=== PATIENT | male | born 1935 | race Caucasian/White ===

== ENCOUNTER 2024-08-30 13:12 | Emergency (ER) | payer MEDICARE, SELFPAY ==
--- NOTE | 2024-08-30 13:27 | XR_ITS ---
Examination: CT brain head without contrast. 2-D sagittal coronal reconstructions Date and time of exam:August 30, 2024 1441 hrs. Indications: Patient fell today with injury to the head, upper head pain scalp pain CTDI: vol (mGy):51.1 DLP: (mGycm):1117 Technique: Multiple CT axial sections of the brain have been obtained, 5 mm slice thickness. Contrast has not been administered. 2-D sagittal, coronal reconstructions have been obtained Low dose protocols were performed. One or more of the following dose reduction techniques were used; automated exposure control, adjustment of the mA and/or KV according to patient size, use of iterative reconstruction technique. Findings: No significant ventricular enlargement. Intra-axial or extra-axial hemorrhage density is not seen. No mass effect or midline shift Basal cisterns are not remarkable. Fourth ventricle is midline. Cranial vault intact. Impression: Negative for acute hemorrhage, mass effect or midline shift
[2024-08-30 13:28] VITALS: BP 161/70; PULSE 81; RESP 18; TEMP 36.6; O2SAT 94; BMI 22.3
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
[2024-08-30] MEDS: DIPHTH,PERTUSS(ACELL),TET VAC 0.5 ML VIAL IMi (16:02)
[2024-08-30] MEDS: LIDOCAINE HCL 1% 20 ML VIAL INFL (16:02)
[2024-08-30 16:22] VITALS: BP 152/76; PULSE 77; RESP 18; TEMP 37; O2SAT 94
== END 2024-08-30 16:31 | disposition home or self-care (01) ==
LOC: SERX 16:24
PROVIDERS: Emergency Provider Emergency Medicine; PCP Family Medicine
DX: S01.01XA Laceration without foreign body of scalp, initial encounter (principal); V00.141A Fall from scooter (nonmotorized), initial encounter; Z23 Encounter for immunization
CPT/HCPCS: 12002; 70450; 90471; 90715; 99284; J3490

== ENCOUNTER 2024-10-16 18:15 | Emergency (ER) | payer MEDICARE, SELFPAY ==
[2024-10-16 18:16] VITALS: BMI 23.7
[2024-10-16 18:38] VITALS: BP 161/77; PULSE 60; RESP 18; TEMP 36.4; O2SAT 95
--- NOTE | 2024-10-16 19:13 | XR_ITS ---
Examination: Foot, right, 3 views Technique: AP, oblique, lateral views foot, 3 views Date and time of exam: October 16, 2024 1947 hrs. Indications: Redness swelling and pain involving the first digit beginning 2 weeks ago. Findings: Moderate osteopenia Mild narrowing first metatarsophalangeal joint No acute fracture No alex cortical bone destruction Impression: No alex cortical bone destruction As clinically warranted, MRI foot without contrast follow-up would best assess for early osteomyelitis
--- NOTE | 2024-10-16 19:13 | PD.EDRME ---
Rapid Medical Screening Exam RME Arrival date/time: 10/16/24 18:15 89 year old male present to ED for c/o of foot pain for 2 days I have greeted and performed a focused initial assessment of this patient. A comprehensive ED assessment and evaluation of the patient, analysis of all test results, and completion of the medical decision making process will be conducted by additional ED providers. Chief Complaint: Extremity Problem,Nontraumatic Time Seen by Provider: 10/16/24 18:56 Vital signs: Vital Signs Temperature 97.6 F 10/16/24 18:38 Pulse Rate 60 10/16/24 18:38 Respiratory Rate 18 10/16/24 18:38 Blood Pressure 161/77 H 10/16/24 18:38 Pulse Oximetry (%) 95 10/16/24 18:38 Oxygen Delivery Method Room Air 10/16/24 18:38
[2024-10-16 19:34] LABS: Basophils % (Auto) 1 % (0-2.5); Eosinophils # (Auto) 0.2 Thou/mm3 (0.0-0.5); Eosinophils % (Auto) 4 % (0-10); Hematocrit 30.5 % (41.0-53.0); Hemoglobin 9.9 g/dL (13.5-16.0); Immature Granulocytes % (Auto) 0 % (0-0); Immature Granulocytes Auto 0.01 Thou/mm3 (0.00-0.00); Lymphocytes # (Auto) 1.1 Thou/mm3 (1.0-4.8); Lymphocytes % (Auto) 19 % (10-50); Mean Corpuscular HGB Conc 32.5 g/dl (31.0-37.0); Mean Corpuscular Hemoglobin 31.7 pg (25.0-35.0); Mean Corpuscular Volume 98 fL (80-100); Monocytes # (Auto) 0.7 Thou/mm3 (0.0-0.8); Monocytes % (Auto) 11 % (0-12); Neutrophils # (Auto) 3.7 Thou/mm3 (1.8-7.7); Neutrophils % (Auto) 65 % (37-80); Nucleated Red Blood Cell % 0 /100 WBC (0); Platelet Count 271 Thou/mm3 (140-440); RDW Standard Deviation 47.2 fL (35.1-43.9); Red Blood Count 3.12 Miln/mm3 (4.50-5.90); White Blood Count 5.7 Thou/mm3 (3.8-10.6)
[2024-10-16 19:51] LABS: Sed Rate (ESR) 25 mm/hr (0-20)
[2024-10-16 20:02] LABS: Alanine Aminotransferase 8 U/L (10-49); Albumin, Serum 3.9 gm/dL (3.4-4.8); Albumin/Globulin Ratio 1.7 (1.2-2.2); Alkaline Phosphatase 44 U/L (46-116); Anion Gap 4 (7-16); Aspartate Amino Transferase < 10 U/L (0-34); BUN/Creatinine Ratio 13 Ratio (12-20); Bilirubin,Total 0.3 mg/dL (0.3-1.2); Blood Urea Nitrogen 10 mg/dL (9-23); C-Reactive Protein < 0.4 mg/dL (0.0-0.9); Calcium 8.9 mg/dL (8.3-10.6); Carbon Dioxide 31.8 mMol/L (20.0-31.0); Chloride 104 mMol/L (98-107); Creatinine (Component) 0.8 mg/dL (0.6-1.3); Estimated Creatinine Clearance 69.3 mL/min (>60); Globulin 2.3 gm/dL (2.3-3.5); Glucose 175 mg/dL (74-106); Osmolality,Calculated 282 (275-295); Potassium 4.4 mMol/L (3.4-5.1); Sodium 140 mMol/L (136-145); Total Protein 6.2 gm/dL (5.7-8.2); eGFR > 60 See Note
[2024-10-16 22:23] LABS: Lactate (Lactic Acid) 0.8 mMol/L (0.4-2.0)
--- NOTE | 2024-10-17 00:10 | PC.NURSE ---
patient leaving AMA. provider spoke with patient at bedside informed patient of possible outcomes that could lead to amputation and even encouraged patient to return if symptoms worsen patient is AAOx4.
[2024-10-17] MEDS: oxyCODONE/APAP 5/325 TABLET 1 TAB PO (00:16)
== END 2024-10-17 00:18 | disposition left against medical advice (07) ==
LOC: SERX 19:57
PROVIDERS: Physician Assistant; Emergency Provider Emergency Medicine; PCP Family Medicine
DX: M79.671 Pain in right foot (principal)
CPT/HCPCS: 36415; 73630; 80053; 83605; 85025; 85652; 86140; 87040; 99281; A9270